=== PATIENT | female | born 1975 | race Hispanic/Latino ===

== ENCOUNTER 2019-03-08 21:41 | Inpatient (IN) | payer SELFPAY ==
[~2019-03-08] VITALS: Ht 162.6 cm; Wt 108.4 kg
--- OUTSIDE RECORDS SUMMARY | 2019-03-08 21:44 | XMS REPORT ---
Author [facility] Address Unknown Phone Unavailable Care Team Providers Care Placer Miner Name Role Phone UNKNOWN, REFFERING PP Unavailable SARAHI, SHARON Unavailable Unavailable Payers Payer Name Policy Type Policy Number Effective Date Expiration Date Problems This patient has no known problems. Allergies, Adverse Reactions, Alerts Allergy Name Allergy Type Status Severity Reaction(s) Onset Date Inactive Date Treating Clinician Comments No Known Allergies DA Active U 2015-07-09 00:00:00 Medications This patient has no known medications. Results Test Description Test Time Test Comments Text Results Atomic Results Result Comments COMPREHENSIVE METABOLIC PANEL 2018-11-15 18:50:00 SODIUM (test code=NA) 136 mmol/L 135-148 POTASSIUM (test code=K) 4.1 mmol/L 3.5-5.1 CHLORIDE (test code=CL) 100 mmol/L 101-109 CARBON DIOXIDE (test code=CO2) 27.8 mmol/L 21-32 ANION GAP (test code=GAP) 12 mmol/L 10-20 GLUCOSE (test code=GLU) 333 mg/dL 74-106 BLOOD UREA NITROGEN (test code=BUN) 18 mg/dL 3-21 CREATININE (test code=CREAT) 1.14 mg/dL 0.55-1.3 BUN/CREATININE RATIO (test code=BUN/CREA) 15.8 10-20 TOTAL PROTEIN (test code=PROT) 7.4 g/dL 6.5-8.4 ALBUMIN (test code=ALB) 3.1 g/dL 3.4-4.8 GLOBULIN (test code=GLOB) 4.3 G/DL 1-10 ALBUMIN/GLOBULIN RATIO (test code=A/G) 0.7 RATIO 0.75-1.50 CALCIUM (test code=CA) 8.5 mg/dL 8.4-10.2 BILIRUBIN TOTAL (test code=BILT) 0.20 mg/dL 0.0-1.0 SGOT/AST (test code=AST) 32 U/L 6-32 SGPT/ALT (test code=ALT) 62 U/L 12-78 Note: Change in REFERENCE RANGE due to new reagent method. ALKALINE PHOSPHATASE TOTAL (test code=ALKP) 164 U/L 38-126 URINALYSIS [id number] 18:36:00* Test Item Value Reference Range Comments UA COLOR (test code=COLU) YELLOW YELLOW UA APPEARANCE (test code=APPU) CLEAR CLEAR UA GLUCOSE DIPSTICK (test code=DGLUU) 1000(3+) mg/dL NEGATIVE UA BILIRUBIN DIPSTICK (test code=BILU) 1 mg/dL (1+) mg/dL NEGATIVE UA KETONE DIPSTICK (test code=KETU) 5 (Trace) mg/dL NEGATIVE UA SPECIFIC GRAVITY (test code=SGU) 1.020 1.001-1.035 UA BLOOD DIPSTICK (test code=SILVANA) 50 (2+) Wilfrid/uL NEGATIVE UA PH DIPSTICK (test code=CHAZ) 5.0 5.0-8.0 UA PROTEIN DIPSTICK (test code=PROU) 100 (2+) mg/dL Neg-15 UA UROBILINIOGEN DIPSTICK (test code=URO) 4 mg/dL (2+) mg/dL 0.0-0.2 UA NITRITE DIPSTICK (test code=SHARYN) NEGATIVE NEGATIVE UA LEUKOCYTE ESTERASE DIPSTICK (test code=LEUU) NEGATIVE uL NEGATIVE UA WBC (test code=WBCU) NONE SEEN per HPF 0-5 IN SOME URINARY TRACT INFECTIONS THERE MAY NOT BE ENOUGHWBCs IN THE URINE TO TRIGGER AN AUTOMATIC (REFLEX) URINECULTURE. A SEPERATE ORDER FOR URINE CULTURE IS RECOMMENDEDIF THERE IS STRONG SUPPORT FOR A URINARY TRACT INFECTIONCLINICALLY. UA RBC (test code=RBCU) 0-3 per HPF 0-5 UA EPITHELIAL CELLS (test code=EPIU) Rare (0-1/hpf) per HPF Few UA BACTERIA (test code=BACU) FEW per HPF NONE Urine Source? Clean CatchURINALYSIS [id number] 18:28:00* Test Item Value Reference Range Comments UA COLOR (test code=COLU) YELLOW YELLOW UA APPEARANCE (test code=APPU) CLEAR CLEAR UA GLUCOSE DIPSTICK (test code=DGLUU) 1000(3+) mg/dL NEGATIVE UA BILIRUBIN DIPSTICK (test code=BILU) 1 mg/dL (1+) mg/dL NEGATIVE UA KETONE DIPSTICK (test code=KETU) 5 (Trace) mg/dL NEGATIVE UA SPECIFIC GRAVITY (test code=SGU) 1.020 1.001-1.035 UA BLOOD DIPSTICK (test code=SILVANA) 50 (2+) Wilfrid/uL NEGATIVE UA PH DIPSTICK (test code=CHAZ) 5.0 5.0-8.0 UA PROTEIN DIPSTICK (test code=PROU) 100 (2+) mg/dL Neg-15 UA UROBILINIOGEN DIPSTICK (test code=URO) 4 mg/dL (2+) mg/dL 0.0-0.2 UA NITRITE DIPSTICK (test code=SHARYN) NEGATIVE NEGATIVE UA LEUKOCYTE ESTERASE DIPSTICK (test code=LEUU) NEGATIVE uL NEGATIVE UA WBC (test code=WBCU) per HPF 0-5 Urine Source? Clean CatchCBC W/AUTO [id number] 18:27:00* Test Item Value Reference Range Comments WHITE BLOOD CELL (test code=WBC) 8.5 K/mm3 4.5-12.5 RED BLOOD CELL (test code=RBC) 5.61 mill/mm3 3.7-5.2 HEMOGLOBIN (test code=HGB) 16.3 gram/dL 11.5-15.5 HEMATOCRIT (test code=HCT) 48.6 % 36.0-46.0 MEAN CELL VOLUME (test code=MCV) 86.6 fL 80-98 MEAN CELL HGB (test code=MCH) 29.1 picogram 27.0-33.0 MEAN CELL HGB CONCETRATION (test code=MCHC) 33.5 gram/dL 33.0-36.0 RED CELL DISTRIBUTION WIDTH (test code=RDW) 14.0 % 11.6-16.2 RED CELL DISTRIBUTION WIDTH SD (test code=RDW-SD) 44.0 fL 39.1-52.0 PLATELET COUNT (test code=PLT) 177 K/mm3 150-450 MEAN PLATELET VOLUME (test code=MPV) 12.6 fL 6.7-11.0 NEUTROPHIL % (test code=NT%) 67.6 % 39.0-69.0 LYMPHOCYTE % (test code=LY%) 22.7 % 25.0-55.0 MONOCYTE % (test code=MO%) 6.5 % 0.0-10.0 EOSINOPHIL % (test code=EO%) 2.8 % 0.0-5.0 BASOPHIL % (test code=BA%) 0.4 % 0.0-1.0 NEUTROPHIL # (test code=NT#) 5.76 K/mm3 1.8-7.7 LYMPHOCYTE # (test code=LY#) 1.93 K/mm3 1.0-5.0 MONOCYTE # (test code=MO#) 0.55 K/mm3 0-0.8 EOSINOPHIL # (test code=EO#) 0.24 K/mm3 0.0-0.5 BASOPHIL # (test code=BA#) 0.03 K/mm3 0.0-0.2 MANUAL DIFF REQUIRED (test code=MDIFF) NO Comprehensive Metabolic [id number] 18:44:00* Test Item Value Reference Range Comments Sodium (test code=NA) 136 mmol/L 135-145 Potassium (test code=K) 4.1 mmol/L 3.5-5.1 Chloride (test code=CL) 101 mmol/L 98-105 Carbon Dioxide (test code=CO2) 23 mmol/L 22-29 Glucose (test code=GLU) 155 mg/dL 70-115 Blood Urea Nitrogen (test code=BUN) 12 mg/dL 6-20 Creatinine (test code=CREAT) 0.8 mg/dL 0.5-0.9 Calcium (test code=CA) 9.5 mg/dL 8.3-10.5 Prot Total (test code=TP) 6.7 g/dL 6.4-8.3 Albumin (test code=ALB) 4.0 g/dL 3.5-5.2 A/G Ratio (test code=AGRATIO) 1.5 Ratio Globulin (test code=GLOB) 2.7 2.9-3.1 Bili Total (test code=TBIL) 0.2 mg/dL 0.1-0.9 Alk Phos (test code=APHOS) 134 U/L 35-104 AST (test code=AST) 14 U/L 1-32 ALT (test code=ALT) 26 U/L 1-33 BUN/Creatinine Ratio (test code=BCRATIO) 15.0 Anion Gap (test code=AGAP) 12 mmol/L 7-16 Estimated GFR (test code=GFR) >60 mL/min/1.73m2 eGFR (estimated Glomerular Filtration Rate) is an estimated value,calculated from the patient's serum creatinine using the MDRD equation.It is NOT the patient's actual GFR. The eGFR provides a more clinicallyuseful measure of kidney disease than serum creatinine alone.This calculation takes sex and race into account, if the informationis provided. If the race is not provided, and the patient isAfrican-Niuean, multiply by 1.212. If sex is not provided, and thepatient is female, multiply by 0.742. Results for patients <18 years ofage have not been validated by the MDRD study and should be interpretedwith caution.eGFR Result Interpretation:eGFR > or=60 is in the Normal RangeeGFR < 60 may mean kidney diseaseeGFR < 15 may mean kidney failureRanges recommended by the National Kidney Foundat ion,http://nkdep.nih.gov Troponin [id number] 18:44:00* Test Item Value Reference Range Comments Troponin T (test code=VALENTIN) 0.019 ng/mL 0.000-0.090 CBC with [id number] 18:24:00* Test Item Value Reference Range Comments WBC (test code=WBC) 12.2 K/cumm 4.4-10.5 RBC (test code=RBC) 4.92 M/cumm 3.75-5.20 Hemoglobin (test code=HGB) 14.5 gm/dL 12.2-14.8 Hematocrit (test code=HCT) 43.0 % 36.5-44.4 MCV (test code=MCV) 87.4 fL 80-100 MCH (test code=MCH) 29.4 pg 27.0-32.5 MCHC (test code=MCHC) 33.6 g/dL 32.0-37.5 RDW (test code=RDW) 16.0 % 11.5-14.5 Platelet Count (test code=PLTCT) 241 K/cumm 140-440 MPV (test code=MPV) 10.3 fL Diff Method (test code=DIFFM) Auto Neutrophil (test code=NEUT) 62.8 % 36-70 Lymphocyte (test code=LYMPH) 26.9 % 12-44 Monocyte (test code=MONO) 5.4 % 0-11 Eosinophil (test code=EOS) 4.3 % 0-7 Basophil (test code=BASO) 0.6 % 0-2 Neutro Abs (test code=ANEUT) 7.7 K/cumm 1.6-7.4 Lymph Abs (test code=ALYMPH) 3.3 K/cumm 0.5-4.6 [place] Abs (test code=AMONO) 0.7 K/cumm 0.0-1.2 Eos Abs (test code=AEOS) 0.52 K/cumm 0.00-0.74 Baso Abs (test code=ABASO) 0.1 K/cumm 0.00-0.21 BHCG, Urine, [id number] 18:22:00* Test Item Value Reference Range Comments Preg Qual [Ur] (test code=HUHCG) Negative Negative US 2D-ECHOCARDIOGRAPHY WITH DOPPLERCLINICAL INDICATION: R60.9 Edema, unspecifiedMODALITY: [employer] ProTECHNIQUE: Transthoracic echocardiogram with 2D, continuous Doppler and color Doppler techniques. Sampling of mitral, tricuspid, aortic and pulmonary valves. Pressures, velocities and other measurements were obtained.CONCLUSIONS:1. Left ventricular EF is 65 - 70%. LV size and systolic function are normal. There is mild LVH.2. The diastolic filling pattern is indicative of impaired LV relaxation.3. There are no significant valvular abnormalities.4. There is an insufficient tricuspid regurgitant jet to allow for the assessment of PASP.COMPARISON: noneTechn ologist: FINDINGS:Left ventricle: Left ventricular size and systolic function ar e normal. There is mild LVH. The left ventricular EF is 65 - 70%. The diastolic filling pattern is indicative of impaired LV relaxation.Left atrium: Left atriu m is normal in size and function.Right ventricle: The right ventricle is normal in size and function.Right atrium: The right atrium is normal in size and func tion.Aortic valve: The aortic valve is trileaflet and appears structurally norm al. No aortic stenosis or regurgitation.Mitral valve: Normal appearing mitral valve. Trace/mild (physiologic) regurgitation.Tricuspid valve: Tricuspid valve appears normal. There is an insufficient tricuspid regurgitant jet to allow fo r the assessment of pulmonary artery systolic pressure.Pulmonic valve: Pulmonic valve appear structurally normal, physiologic degree of pulmonic regurgitation. Pericardium: There is no pericardial effusion.Aorta: The aortic root is normal in caliber.VSD/ASD:
[2019-03-08] MEDS ORDERED: LABETALOL HCL 5 MG/ML 20ML VIAL IV STA (22:29)
[2019-03-08 22:46] LABS: BASOPHILS # (AUTO) 0.1 (0.0-0.1); BASOPHILS % 0.6 % (0.0-1.0); EOSINOPHILS # (AUTO) 0.4 (0.0-0.4); EOSINOPHILS % 3.1 % (0.0-6.0); HEMATOCRIT 45.9 % (34.2-44.1); HEMOGLOBIN 15.9 g/dL (12.0-16.0); LYMPHOCYTES # (AUTO) 3.7 (1.0-3.2); LYMPHOCYTES % 28.6 % (18.0-39.1); MEAN CORPUSCULAR HEMOGLOBIN 29.1 pg (28-32); MEAN CORPUSCULAR HGB CONC 34.6 g/dL (31-35); MEAN CORPUSCULAR VOLUME 83.9 fL (81-99); MONOCYTES # (AUTO) 0.6 (0.2-0.8); MONOCYTES % 4.4 % (4.4-11.3); NEUTROPHILS # (AUTO) 8.2 (2.1-6.9); NEUTROPHILS % 62.8 % (38.7-80.0); PLATELET COUNT 227 x10e3/uL (140-360); RED BLOOD COUNT 5.47 x10e6/uL (3.6-5.1); RED CELL DISTRIBUTION WIDTH 13.4 % (11.7-14.4)
[2019-03-08 22:52] LABS: INR 0.94; PARTIAL THROMBOPLASTIN TIME 26.9 seconds (23.8-35.5); PROTHROMBIN TIME 13.1 seconds (11.9-14.5)
--- NOTE | 2019-03-08 22:55 | Diagnostic Imaging Report ---
Examination: Single AP view of the chest. COMPARISON: None. INDICATION: Left-sided weakness DISCUSSION: Lines/tubes: None. Lungs: The lungs are well inflated and clear. No pneumonia or pulmonary edema. Pleura: No pleural effusion or pneumothorax. Heart and mediastinum: The heart and the mediastinum are unremarkable. Bones and soft tissues: No acute bony abnormalities. IMPRESSION: 1. No acute cardiopulmonary abnormalities. Signed by: Dr. Antony Hall M.D. on 03/08/2019 10:51 PM
--- NOTE | 2019-03-08 22:57 | Diagnostic Imaging Report ---
EXAMINATION: Head CT without contrast. HISTORY:Left facial droop and weakness. COMPARISON:None. TECHNIQUE: Multidetector axial images were obtained from the foramen magnum to the vertex without contrast. The images were reconstructed using brain and bone algorithms. Thin section brain images were reformatted into coronal and sagittal planes. Dose modulation, iterative reconstruction, and/or weight based adjustment of the mA/kV was utilized to reduce the radiation dose to as low as reasonably achievable. Intravenous contrast: None IMAGE QUALITY: Suboptimal evaluation particularly of skull base and posterior fossa structures due to streak artifacts. FINDINGS: Skull/scalp: No lytic or blastic. lesions. No surgical changes. Parenchyma: No abnormal density. No acute hemorrhage, mass or acute major vascular territorial infarct. Arteries: No density suggestive of thrombosis. Dural sinuses: No abnormal density suggestive of thrombosis. Ventricles: No hydrocephalus or displacement. Extra-axial spaces: No abnormal density. Brain volume: Normal for age. Craniocervical junction: No mass, Chiari malformation, or basilar invagination. Sella: No mass. Paranasal/mastoid sinuses: Partial opacification of right mastoid air cells. IMPRESSION: Suboptimal evaluation of skull base and posterior fossa structures due to streak artifacts. Despite the limitation, no gross acute intracranial abnormality. Signed by: Dr. Marley Sung M.D. on 03/08/2019 10:54 PM
[2019-03-08 22:59] LABS: ALBUMIN 3.8 g/dL (3.5-5.0); ANION GAP 20.7 mmol/L (8-16); CALCIUM 10.6 mg/dL (8.4-10.2); CREATININE, SERUM 1.14 mg/dL (0.57-1.11); POTASSIUM 3.7 mmol/L (3.5-5.1)
[2019-03-08 23:08] LABS: CREATINE KINASE MB 1.6 ng/mL (0-5.0)
[2019-03-08 23:54] LABS: AMPHETAMINES SCREEN,URINE NEGATIVE (NEGATIVE); BENZODIAZEPINES SCREEN,URINE NEGATIVE (NEGATIVE); PHENCYCLIDINE SCREEN,URINE NEGATIVE (NEGATIVE)
[2019-03-09] VITALS (24 sets, daily range): BP systolic 144–207; BP diastolic 62–143
[2019-03-09] MEDS ORDERED: HYDRALAZINE HCL 20 MG/ML VIAL IV STA (00:03)
[2019-03-09 00:05] LABS: CLARITY,URINE CLOUDY (CLEAR); COLOR,URINE YELLOW (YELLOW); LEUKOCYTE ESTERASE ,URINE NEGATIVE (NEGATIVE)
[2019-03-09 00:06] LABS: BILIRUBIN,URINE NEGATIVE (NEGATIVE); KETONES,URINE NEGATIVE (NEGATIVE); NITRITE,URINE NEGATIVE (NEGATIVE); PROTEIN,URINE DIPSTICK 2+ (NEGATIVE); URINE UROBILINOGEN 0.2 mg/dL (0.2 - 1)
[2019-03-09] MEDS ORDERED: ASPIRIN 325 MG TAB ONE (00:13)
[2019-03-09] MEDS ORDERED: HYDRALAZINE HCL 20 MG/ML VIAL ONE (00:14)
[2019-03-09] MEDS ORDERED: ASPIRIN 81 MG CHEW TAB PO ONE (00:15)
[2019-03-09 00:22] LABS: BACTERIA,URINE FEW /HPF; EPITHELIAL CELLS,URINE FEW /LPF
[2019-03-09] MEDS ORDERED: DEXTROSE 50% SYRINGE 50 ML IV PRN (01:15)
[2019-03-09] MEDS ORDERED: ONDANSETRON HCL INJ 2MG/ML 2ML 2 MG/ML VIAL IV PRN (01:15)
[2019-03-09] MEDS ORDERED: ENALAPRILAT IV INJ 1.25 MG/ML VIAL IV STA (02:20)
[2019-03-09] MEDS: LABETALOL HCL 5 MG/ML 20ML VIAL IV PRN ×2 (05:40→18:54)
[2019-03-09 07:49] LABS: CREATINE KINASE MB 1.4 ng/mL (0-5.0)
[2019-03-09] MEDS: INSULIN LISPRO 100 UNIT/1 ML 3ML VIAL SQ SCH ×4 (08:20→21:22)
[2019-03-09] MEDS: LISINOPRIL 10 MG TAB PO SCH ×2 (08:40→08:49)
--- NOTE | 2019-03-09 09:21 | NUR ---
GAVE PACKET OF INFORMATION WITH COMMUNITY RESOURCES FOR ASSISTANCE WITH LOW TO NO INCOME TO PATIENT. RESOURCES THAT PATIENT MAY BE ABLE TO FOLLOW UP UPON DISCHARGE. PT EDUCATED ON EACH RESOURCE AND UNDERSTANDING HOW TO FOLLOW UP TO SEE IF QUALIFIED FOR EACH RESOURCE.
[2019-03-09] MEDS ORDERED: LORAZEPAM INJ 2 MG/ML VIAL ONE (11:54)
[2019-03-09] MEDS ORDERED: LORAZEPAM INJ 2 MG/ML VIAL IV ONE (12:00)
--- NOTE | 2019-03-09 13:29 | NUR ---
WOUND CARE PUP SCREEN Romulo Score: 23 PUP: Conservative LOS: 1 day Age: 43 [place] HOB < 30 Degrees Patient Position: Left PATIENT VISIT / SKIN CHECK: No Pressure Ulcers Identified, Able to turn self. RECOMMENDATION:Continue Conservative PUP Addendum: 03/09/19 at 1330 by Ean Rios RN Amended: Links added.
[2019-03-09 15:07] LABS: CREATINE KINASE 111 IU/L (29-168)
--- NOTE | 2019-03-09 15:10 | Diagnostic Imaging Report ---
Brain MRI without IV contrast: History: Left facial droop. Comparison studies: Head CT 03/08/2019. Technique: Sagittal and axial T2 FS, axial DWI, axial T2*GRE, axial T1 FLAIR and axial coronal T2 FLAIR. Intravenous contrast: None Findings: Several pulse sequences are somewhat limited by artifacts related to patient motion. In spite of this limitation: Scalp: Normal in signal. No masses. Bone marrow: Normal in signal intensity. Brain sulci: Appropriate for age. Ventricles: Normal in size. No hydrocephalus. Extra axial spaces: No mass, no fluid collection. Parenchyma: A few scattered T2 FLAIR hyperintense foci in the supratentorial white matter are nonspecific most compatible with chronic microvascular ischemic changes. No mass, hemorrhage or acute ischemia. Suprasellar region: No abnormalities. Craniocervical junction: Patent foramen magnum. No Chiari malformation. Vessels: Normal flow-voids in the arteries and sinuses. Incidental findings: Mild reactive T2 hyperintense inflammatory changes in the right mastoids. IMPRESSION: 1. No acute ischemia or other acute intracranial abnormalities. 2. Mild chronic microvascular ischemic changes. Signed by: Dr. Slava Lopez M.D. on 03/09/2019 3:07 PM
[2019-03-09] MEDS: METOPROLOL TARTRATE 25 MG TAB PO SCH (16:16)
[2019-03-09] MEDS: AMLODIPINE BESYLATE 5 MG TAB PO SCH (16:17)
--- NOTE | 2019-03-09 16:44 | NUR ---
Dr.. Rivera updated this morning upon rounding. new orders received. MRI brain completed. tolerated MRI with ativan iv well. patient ambulating to bathroom. gait stable. only facial droop noted and updated to MD. hendrix. nbp elevated throughout day. pt asymptomatic (except facial droop). new medication orders received.
--- NOTE | 2019-03-09 19:34 | NUR ---
call placed to dr. howard regarding bp elevation. pt asymptomatic. administered prn bp medication with little effect. [id number] nursing report given to machinist 2nd shift RN.
[2019-03-10] VITALS (22 sets, daily range): BP systolic 147–205; BP diastolic 75–110
[2019-03-10] MEDS: INSULIN LISPRO 100 UNIT/1 ML 3ML VIAL SQ SCH ×4 (07:55→20:30)
[2019-03-10] MEDS: AMLODIPINE BESYLATE 5 MG TAB PO SCH ×2 (07:59→16:42)
[2019-03-10] MEDS: METOPROLOL TARTRATE 25 MG TAB PO SCH ×2 (08:00→16:42)
[2019-03-10] MEDS: LABETALOL HCL 5 MG/ML 20ML VIAL IV PRN ×2 (15:17→21:12)
[2019-03-10] MEDS ORDERED: HYDRALAZINE HCL 25 MG TAB PO SCH (17:30)
[2019-03-10] MEDS: METFORMIN HCL 500 MG TAB PO SCH (18:23)
[2019-03-10] MEDS: BENZONATATE 100 MG CAP PO SCH (20:30)
[2019-03-10] MEDS ORDERED: INSULIN GLARGINE 100 UNITS/ML VIAL SQ SCH (21:00)
[2019-03-10] MEDS: HYDRALAZINE HCL 25 MG TAB PO SCH (22:44)
[2019-03-10] MEDS: ACETAMINOPHEN 325 MG TAB PO PRN (22:44)
[2019-03-11] VITALS (16 sets, daily range): BP systolic 138–203; BP diastolic 69–139
[2019-03-11 04:48] LABS: BASOPHILS # (AUTO) 0.1 (0.0-0.1); BASOPHILS % 0.7 % (0.0-1.0); EOSINOPHILS # (AUTO) 0.6 (0.0-0.4); EOSINOPHILS % 4.4 % (0.0-6.0); HEMATOCRIT 44.4 % (34.2-44.1); HEMOGLOBIN 15.2 g/dL (12.0-16.0); LYMPHOCYTES # (AUTO) 3.9 (1.0-3.2); LYMPHOCYTES % 27.6 % (18.0-39.1); MEAN CORPUSCULAR HGB CONC 34.2 g/dL (31-35); MEAN CORPUSCULAR VOLUME 84.6 fL (81-99); MONOCYTES # (AUTO) 0.7 (0.2-0.8); MONOCYTES % 4.8 % (4.4-11.3); NEUTROPHILS # (AUTO) 8.6 (2.1-6.9); NEUTROPHILS % 61.8 % (38.7-80.0); PLATELET COUNT 215 x10e3/uL (140-360); RED BLOOD COUNT 5.25 x10e6/uL (3.6-5.1); RED CELL DISTRIBUTION WIDTH 13.4 % (11.7-14.4)
[2019-03-11 05:09] LABS: ANION GAP 13.2 mmol/L (8-16); BLOOD UREA NITROGEN 15 mg/dL (7-26); BUN/CREATININE RATIO 16 (6-25); CALCIUM 9.4 mg/dL (8.4-10.2); CARBON DIOXIDE 23 mmol/L (22-29); CHLORIDE 102 mmol/L (98-107); CREATININE, SERUM 0.93 mg/dL (0.57-1.11); EST GLOMERULAR FILTRATION RATE > 60 ML/MIN (60-); GLUCOSE 318 mg/dL (74-118); POTASSIUM 4.2 mmol/L (3.5-5.1); SODIUM 134 mmol/L (136-145)
[2019-03-11] MEDS: LABETALOL HCL 5 MG/ML 20ML VIAL IV PRN ×2 (05:12→16:21)
[2019-03-11] MEDS: INSULIN LISPRO 100 UNIT/1 ML 3ML VIAL SQ SCH ×4 (07:56→21:32)
[2019-03-11] MEDS: INSULIN GLARGINE 100 UNITS/ML VIAL SQ SCH (07:57)
[2019-03-11] MEDS: BENZONATATE 100 MG CAP PO SCH ×3 (08:49→21:30)
[2019-03-11] MEDS: HYDRALAZINE HCL 25 MG TAB PO SCH ×3 (08:49→21:30)
[2019-03-11] MEDS: METFORMIN HCL 500 MG TAB PO SCH ×2 (08:49→17:00)
[2019-03-11] MEDS: METOPROLOL TARTRATE 50 MG TAB PO SCH ×2 (08:49→17:00)
[2019-03-11] MEDS: AMLODIPINE BESYLATE 5 MG TAB PO SCH ×2 (08:49→17:00)
[2019-03-11] MEDS ORDERED: METOPROLOL TARTRATE 25 MG TAB PO SCH (09:00)
--- NOTE | 2019-03-11 13:45 | NUR ---
REC'D PT FROM ICU 194. TELE IN PLACE. PT WANTING TO GO OUTSIDE BUT SHE ON BEDREST.
--- NOTE | 2019-03-11 15:46 | NUR ---
Nutrition Education Note RD Recommendation for Physician: -Continue ADA 1800 diet as ordered -RD provided diabetic diet education on 03/11. Rec pt to f/u with her outpatient RD when d/c. -floor service worker spring to provide resources on low cost insulin options. (no insurance) Plan of Care: RD following, monitoring for tolerance and adequacy, diet education Nutrition reason for involvement: RN Consult diabetic teaching Primary Diagnose(s): facial droop, uncontrolled DM, hypertensive urgency, renal insufficiency PMH: DM, HTN Ht: 64in Wt: 239lb BMI: 41kg/m2 IBW: 120lb RD Assessment: (03/11) Chart reviewed. Labs and meds reviewed. 43yo F, who was admitted for uncontrolled DM and facial droop. BG [address] was consulted for diet education. Visited pt in the room. Pt has stopped taking her diabetic medications for a while. Pt stated I have switched doctors so I didnt get medications. Pt also reported going to diabetes classes with her mother. Reinforced the importance of diabetic diet and physical activity to keep her blood sugar under control. Pt will need 1-on-1 education and monitoring with an outpatient CDE for better management of her blood sugar. Current Diet: ADA 1800 Malnutrition Evaluation (03/11) The patient does not meet criteria for a specified degree of malnutrition at this time. Will re-evaluate at follow-up as appropriate. Diet Education Needs Assessment: Diet education indicated, pt was agreeable with plan. Learner(s): pt Time spent: 20 minutes Barriers: No insurance, cannot afford insulin, not compliant with meds, not interested in lifestyle changes Cultural/Language Modifications: No cultural/language modifications noted. Pt and mom speak [place]ar[place]uan. Readiness: Acceptance Method: Handouts, explanation Topics: Portion control, weight management, medications, BG checks, physical activity Understanding/Compliance: Expect fair understanding/compliance from pt. Will benefit from reinforcement. All questions have been answered. Nutrition Care Level: low Signed: Jaclyn Kidd, MS, RD, LD
--- NOTE | 2019-03-11 16:28 | NUR ---
PT TRANSFERED FROM ICU TO MED SURG BED ENCOURAGED PT TO GET ON INTERNET NOW AND START APPLYING FOR [facility] BENEFITS VALUE PRICED MED LIST [facility] ON CHART FOR PHYSICIAN TO CHOOSE FROM
[2019-03-11] MEDS: ACETAMINOPHEN 325 MG TAB PO PRN (17:20)
--- NOTE | 2019-03-11 18:30 | NUR ---
BP IS LOWER AT THIS TIME 162/77 ON LT ARM. HEADACHE IS BETTER AT THIS TIME
[2019-03-11] MEDS ORDERED: INSULIN GLARGINE 100 UNITS/ML VIAL SQ SCH (21:00)
[2019-03-12] VITALS (8 sets, daily range): BP systolic 130–190; BP diastolic 70–97
--- NOTE | 2019-03-12 03:51 | NUR ---
received call from medical examiners office. Spoke to Lesley Will. Information given patients address, next of kin name and address. patient medical history, procedure and reason for admission to the hospital. Time of , MD who pronounced, MD who will sign certificate name and phone number. Lesley Nicolette stated it was natural , case given over to attending MD, Release # [id number]. Addendum: 03/12/19 at 0423 by Mildred Smith RN please disregard note enter in error
[2019-03-12] MEDS: INSULIN LISPRO 100 UNIT/1 ML 3ML VIAL SQ SCH ×3 (08:17→16:33)
[2019-03-12] MEDS: METOPROLOL TARTRATE 50 MG TAB PO SCH ×2 (08:17→16:00)
[2019-03-12] MEDS: METFORMIN HCL 500 MG TAB PO SCH ×2 (08:17→15:59)
[2019-03-12] MEDS: HYDRALAZINE HCL 25 MG TAB PO SCH ×2 (08:17→15:59)
[2019-03-12] MEDS: AMLODIPINE BESYLATE 5 MG TAB PO SCH ×2 (08:18→16:00)
[2019-03-12] MEDS: BENZONATATE 100 MG CAP PO SCH ×2 (08:18→15:59)
[2019-03-12] MEDS: INSULIN GLARGINE 100 UNITS/ML VIAL SQ SCH (08:18)
[2019-03-12 13:24] LABS: BASOPHILS # (AUTO) 0.1 (0.0-0.1); BASOPHILS % 0.7 % (0.0-1.0); EOSINOPHILS # (AUTO) 0.6 (0.0-0.4); EOSINOPHILS % 4.8 % (0.0-6.0); HEMATOCRIT 46.7 % (34.2-44.1); HEMOGLOBIN 16.1 g/dL (12.0-16.0); LYMPHOCYTES # (AUTO) 3.4 (1.0-3.2); LYMPHOCYTES % 25.3 % (18.0-39.1); MEAN CORPUSCULAR HEMOGLOBIN 29.1 pg (28-32); MEAN CORPUSCULAR HGB CONC 34.5 g/dL (31-35); MEAN CORPUSCULAR VOLUME 84.4 fL (81-99); MONOCYTES # (AUTO) 0.5 (0.2-0.8); MONOCYTES % 3.6 % (4.4-11.3); NEUTROPHILS # (AUTO) 8.6 (2.1-6.9); NEUTROPHILS % 65.1 % (38.7-80.0); PLATELET COUNT 244 x10e3/uL (140-360); RED BLOOD COUNT 5.53 x10e6/uL (3.6-5.1); RED CELL DISTRIBUTION WIDTH 13.6 % (11.7-14.4)
--- NOTE | 2019-03-12 13:27 | NUR ---
NOTIFIED DR. VELASCO REGARDING NEW CONSULT. DR. VELASCO SPOKE WITH DR. ARRIETA AND NOTIFIED THERE IS NOTHING SHE CAN DO AT THIS POINT FOR BELLS PALSY, IT WILL HAVE TO RESOLVE ON ITS OWN. PT CAN F/U OUTPATIENT. PER DR. ARRIETA OK TO D/C HOME TODAY AFTER INSULIN ADMINISTRATION INSTRUCTION.
--- NOTE | 2019-03-12 13:45 | Progress Note ---
DATE: SUBJECTIVE: The patient is doing well except for complaining of dry eyes. OBJECTIVE: HEART: Regular rhythm. Normal S1, S2 sounds. LUNGS: Clear bilaterally. ABDOMEN: Soft. VITAL SIGNS: Blood pressure 141/94, temperature 36.9, heart rate 71 per minute, respiratory rate 20 per minute, oxygen saturation 98%. LABORATORY DATA: On the BMP; sodium 134, potassium 4.2, chloride of 102, CO2 of 23, BUN 15, creatinine 0.83, glucose 318. CBC showed white count 13,900, hemoglobin 15.2, hematocrit 44.2, platelet count of 215,000. PT 13.1, INR 0.94, PTT 26.9. AST 26, ALT 56, total bilirubin 0.3, alkaline phosphatase 157. FINAL IMPRESSION: 1. Canchola's palsy. 2. Uncontrolled diabetes mellitus type 2. 3. Hypertension. 4. Diabetes mellitus. 5. Obesity. PLAN OF TREATMENT: We are going to start the patient on prednisone 60 mg daily because of Canchola's palsy. We are going to consult Dr. French also for further evaluation. MRI of the head showed no evidence of any CVA. Continue metoprolol 50 mg twice a day. Continue Humalog 40 units at bedtime and 10 units in the morning. We are going to start Humalog 5 units before each meal, amlodipine 5 mg twice a day, Tessalon 100 mg three times a day, metformin 500 mg twice a day, hydralazine 50 mg three times a day. Tentative discharge for tomorrow pending evaluation by Dr. French. The patient is told to follow up with her primary care physician in a week. Also today diabetes teaching is going to be given to the patient since this is the first time she is taking insulin. Parish Olivo MD LAS/MODL /[id number]
[2019-03-12] MEDS ORDERED: METOPROLOL TART50 MG PO (14:06)
[2019-03-12] MEDS ORDERED: METFORMIN HCL500 MG PO (14:06)
[2019-03-12] MEDS ORDERED: LANTUS 3ML100 UNITS/ SC ×2 (14:07→14:08)
[2019-03-12] MEDS ORDERED: HYDRALAZINE HCL25 MG PO (14:08)
[2019-03-12] MEDS ORDERED: NORVASC5 MG PO (14:08)
[2019-03-12] MEDS ORDERED: HUMALOG100 UNIT/1 SC (14:09)
[2019-03-12] MEDS ORDERED: ARTIFICIAL TEAR15 ML OP (14:09)
--- NOTE | 2019-03-12 15:45 | NUR ---
D/C INSTRUCTIONS AND PRESCRIPTIONS GIVEN. PT VERBALIZED UNDERSTANDING. IV D/C AND PRESSURE DRESSING APPLIED. TELEMETRY BOX REMOVED AND RETURNED TO WASH RACK OPERATOR. Addendum: 03/12/19 at 1756 by Maribell Mejia RN CORRECT TIME [id number]
[2019-03-12] MEDS ORDERED: INSULIN LISPRO 100 UNIT/1 ML 3ML VIAL SQ SCH (16:30)
--- NOTE | 2019-03-12 16:33 | NUR ---
INSTRUCTIONS GIVEN ON USING GLUCOMETER FOR GLUCOSE MONITORING AND ADMINISTERING OWN INSULIN. PT CHECKED OWN BLOOD SUGAR AND ADMINISTERED OWN INSULIN ORDERED. PT VERBALIZED UNDERSTANDING AND GOOD RETURN DEMONSTRATION NOTED. ALL QUESTIONS ANSWERED.
== END 2019-03-12 17:45 | disposition home or self-care (01) | DRG 74 ==
LOC: ER 21:41 → ERHOLD 03-09 01:27 → OBSVTOIN 03-09 02:36 → ICU 03-09 03:16 → MED/SURG 03-11 13:52
DX: G51.0 Bell's palsy (principal); Z68.41 Body mass index [BMI] 40.0-44.9, adult; I16.0 Hypertensive urgency; N28.9 Disorder of kidney and ureter, unspecified; E11.65 Type 2 diabetes mellitus with hyperglycemia; I10 Essential (primary) hypertension; E66.9 Obesity, unspecified; Z79.4 Long term (current) use of insulin
CPT/HCPCS: 36415; 70450; 70551; 71045; 80048; 80053; 80307; 81001; 82550; 82553; 82948; 83880; 84484; 85025; 85610; 85730; 93005; 93306; 93880; 96372; 96374; 99284; J0360; J1815; J2060

== ENCOUNTER 2019-06-03 06:06 | Emergency (ER) | payer SELFPAY ==
[~2019-06-03] VITALS: Ht 162.6 cm; Wt 108.9 kg
[~2019-06-03 06:06] MED LIST: ARTIFICIAL TEAR15 ML OP; HUMALOG100 UNIT/1 SC; HYDRALAZINE HCL25 MG PO; LANTUS 3ML100 UNITS/ SC; METFORMIN HCL500 MG PO; METOPROLOL TART50 MG PO; NORVASC5 MG PO
[2019-06-03] MEDS ORDERED: ONDANSETRON HCL INJ 2MG/ML 2ML 2 MG/ML VIAL IV STA (06:16)
[2019-06-03] MEDS ORDERED: HYDRALAZINE HCL 20 MG/ML VIAL IV ONE (06:30)
[2019-06-03 06:42] LABS: BASOPHILS # (AUTO) 0.1 (0.0-0.1); BASOPHILS % 0.9 % (0.0-1.0); EOSINOPHILS # (AUTO) 0.5 (0.0-0.4); EOSINOPHILS % 3.9 % (0.0-6.0); HEMATOCRIT 46.2 % (34.2-44.1); HEMOGLOBIN 16.1 g/dL (12.0-16.0); LYMPHOCYTES # (AUTO) 2.1 (1.0-3.2); LYMPHOCYTES % 16.3 % (18.0-39.1); MEAN CORPUSCULAR HEMOGLOBIN 29.5 pg (28-32); MEAN CORPUSCULAR HGB CONC 34.8 g/dL (31-35); MEAN CORPUSCULAR VOLUME 84.6 fL (81-99); MONOCYTES # (AUTO) 0.5 (0.2-0.8); MONOCYTES % 3.6 % (4.4-11.3); NEUTROPHILS # (AUTO) 9.5 (2.1-6.9); NEUTROPHILS % 74.9 % (38.7-80.0); PLATELET COUNT 237 x10e3/uL (140-360); RED BLOOD COUNT 5.46 x10e6/uL (3.6-5.1); RED CELL DISTRIBUTION WIDTH 13.4 % (11.7-14.4)
--- NOTE | 2019-06-03 06:47 | Diagnostic Imaging Report ---
A single frontal view of the chest. HISTORY: Headache, nausea, double vision COMPARISON: Chest radiograph March 08, 2019 DISCUSSION: Portable technique, limits sensitivity of the exam. Soft tissue attenuation partially limits sensitivity of the exam. Tubes/Lines: None Lungs and pleura: Low lung volumes result in bibasilar vascular crowding, accentuation of the pulmonary interstitial markings, central pulmonary vasculature, and the cardiac silhouette. Allowing for these limitations, the findings are as follows: No evidence of a consolidative pneumonia or pulmonary alveolar edema. No definite pleural effusion or pneumothorax is identified. Heart and mediastinum: The cardiomediastinal silhouette appear(s) unremarkable. Bones and soft tissues: Appear unremarkable, given this limited exam. IMPRESSION: 1. No acute radiographic abnormality. 2. No significant interval change. Signed by: Dr. Jose F Jeff D.O., M.M.M. on 06/03/2019 6:43 AM
[2019-06-03 06:57] LABS: ALBUMIN 3.6 g/dL (3.5-5.0); ALBUMIN/GLOBULIN RATIO 0.9 (0.8-2.0); ANION GAP 15.1 mmol/L (8-16); CALCIUM 9.6 mg/dL (8.4-10.2); CREATININE, SERUM 1.19 mg/dL (0.57-1.11); POTASSIUM 4.1 mmol/L (3.5-5.1)
[2019-06-03 07:03] LABS: CREATINE KINASE MB 6.1 ng/mL (0-5.0)
--- NOTE | 2019-06-03 07:28 | Diagnostic Imaging Report ---
EXAMINATION: Head CT HISTORY: Headache, nausea, double vision, blurry vision, hypertension, weakness COMPARISON: Brain MRI 03/09/[address] 03/08/2019 TECHNIQUE: Multidetector axial images were obtained without contrast from the foramen magnum to the vertex . The images were reconstructed using brain and bone algorithms. Thin section brain images were reformatted into coronal and sagittal planes. Image quality: Motion/streaking artifact limits the evaluation of the skull base and posterior cranial fossa. Dose modulation, iterative reconstruction, and/or weight based adjustment of the mA/kV was utilized to reduce the radiation dose to as low as reasonably achievable. FINDINGS: Parenchyma: 1. Again noted although less conspicuous compared to prior brain MRI due to differences in technique/modality minimal white matter chronic microvascular ischemic changes. 2. No mass or hemorrhage. No CT evidence of acute territorial vascular insult. Extra-axial spaces:No abnormal density. No extra-axial fluid collections Brain volume: Normal for age. Ventricles: No hydrocephalus or displacement. Arteries: No density suggestive of thrombus. Dural sinuses: No abnormal density. Extra-axial spaces: No abnormal density. Foramen magnum: No mass, Chiari malformation, or basilar invagination. Sella: No obvious mass. Paranasal/mastoid sinuses: Imaged portions unremarkable. Skull/Scalp: No lytic or blastic lesions. No fractures. IMPRESSION: 1. No acute intracranial abnormalities, particularly no hemorrhage. 2. Stable minimal chronic microvascular ischemic changes compared to prior brain MRI 03/09/2019. Signed by: Dr. Elvira Jaramillo M.D. on 06/03/2019 7:25 AM
[2019-06-03] MEDS ORDERED: INSULIN REGULAR, HUMAN 100 UNIT/1 ML 3ML VIAL SQ ONE (07:45)
[2019-06-03 07:48] LABS: CLARITY,URINE HAZY (CLEAR); COLOR,URINE YELLOW (YELLOW); LEUKOCYTE ESTERASE ,URINE NEGATIVE (NEGATIVE)
[2019-06-03 07:49] LABS: BILIRUBIN,URINE SMALL (NEGATIVE); KETONES,URINE NEGATIVE (NEGATIVE); NITRITE,URINE NEGATIVE (NEGATIVE); PROTEIN,URINE DIPSTICK 3+ (NEGATIVE); URINE UROBILINOGEN 0.2 mg/dL (0.2 - 1)
[2019-06-03 07:50] LABS: BACTERIA,URINE MANY /HPF; EPITHELIAL CELLS,URINE MODERATE /LPF; RBC,URINE 0-5 /HPF (0-5)
[2019-06-03] MEDS ORDERED: INSULIN GLARGINE 100 UNITS/ML VIAL SQ ONE (08:00)
[2019-06-03 08:07] VITALS: BP 148/80
[2019-06-03] MEDS ORDERED: INSULIN GLARGINE 100 UNITS/ML VIAL SQ SCH (21:00)
== END 2019-06-03 08:09 | disposition home or self-care (01) ==
LOC: ER 06:06
DX: R51 Headache (principal); I10 Essential (primary) hypertension; E11.9 Type 2 diabetes mellitus without complications; Z91.14 Patient's other noncompliance with medication regimen; E66.9 Obesity, unspecified
CPT/HCPCS: 36415; 70450; 71045; 80053; 81001; 82550; 82553; 82948; 84484; 85025; 93005; 96374; 99284; J0360; J1815; J1817; J2405

== ENCOUNTER 2019-06-05 15:43 | Emergency (ER) | payer OTHER ==
[~2019-06-05] VITALS: Ht 162.6 cm; Wt 108.9 kg
[2019-06-05 16:38] LABS: BASOPHILS # (AUTO) 0.1 (0.0-0.1); BASOPHILS % 0.7 % (0.0-1.0); EOSINOPHILS # (AUTO) 0.6 (0.0-0.4); EOSINOPHILS % 4.8 % (0.0-6.0); HEMATOCRIT 45.1 % (34.2-44.1); HEMOGLOBIN 15.4 g/dL (12.0-16.0); LYMPHOCYTES % 23.9 % (18.0-39.1); MEAN CORPUSCULAR HEMOGLOBIN 29.7 pg (28-32); MEAN CORPUSCULAR HGB CONC 34.1 g/dL (31-35); MEAN CORPUSCULAR VOLUME 86.9 fL (81-99); MONOCYTES # (AUTO) 0.6 (0.2-0.8); MONOCYTES % 4.9 % (4.4-11.3); NEUTROPHILS # (AUTO) 8.2 (2.1-6.9); NEUTROPHILS % 65.4 % (38.7-80.0); PLATELET COUNT 219 x10e3/uL (140-360); RED BLOOD COUNT 5.19 x10e6/uL (3.6-5.1); RED CELL DISTRIBUTION WIDTH 13.7 % (11.7-14.4)
[2019-06-05 16:53] LABS: ALBUMIN 3.5 g/dL (3.5-5.0); ALBUMIN/GLOBULIN RATIO 0.9 (0.8-2.0); ANION GAP 12.9 mmol/L (8-16); CALCIUM 9.7 mg/dL (8.4-10.2); CREATININE, SERUM 1.24 mg/dL (0.57-1.11); POTASSIUM 3.9 mmol/L (3.5-5.1)
[2019-06-05 16:53] LABS: BILIRUBIN,URINE NEGATIVE (NEGATIVE); CLARITY,URINE SL CLOUDY (CLEAR); COLOR,URINE YELLOW (YELLOW); KETONES,URINE NEGATIVE (NEGATIVE); LEUKOCYTE ESTERASE ,URINE NEGATIVE (NEGATIVE); NITRITE,URINE NEGATIVE (NEGATIVE); PROTEIN,URINE DIPSTICK 2+ (NEGATIVE); URINE UROBILINOGEN 1 mg/dL (0.2 - 1)
[2019-06-05 17:12] LABS: BACTERIA,URINE MODERATE /HPF; EPITHELIAL CELLS,URINE MODERATE /LPF; RBC,URINE 0-5 /HPF (0-5); WBC,URINE (MAN) 0-5 /HPF (0-5)
[2019-06-05 18:10] VITALS: BP 159/92
== END 2019-06-05 18:20 | disposition home or self-care (01) ==
LOC: ER 15:43
DX: R51 Headache (principal); E11.65 Type 2 diabetes mellitus with hyperglycemia; I10 Essential (primary) hypertension; H57.12 Ocular pain, left eye
CPT/HCPCS: 36415; 80053; 81001; 82948; 85025; 93005; 99284

== ENCOUNTER 2020-01-11 17:56 | Inpatient (IN) | payer SELFPAY ==
[~2020-01-11] VITALS: Ht 162.6 cm; Wt 108.9 kg
[2020-01-11] MEDS ORDERED: HYDRALAZINE HCL 20 MG/ML VIAL IV STA (18:05)
[2020-01-11] MEDS ORDERED: ASPIRIN 81 MG CHEW TAB PO ONE (18:30)
[2020-01-11 18:36] LABS: BASOPHILS # (AUTO) 0.1 (0.0-0.1); BASOPHILS % 0.6 % (0.0-1.0); EOSINOPHILS # (AUTO) 0.5 (0.0-0.4); EOSINOPHILS % 3.8 % (0.0-6.0); HEMATOCRIT 46.3 % (34.2-44.1); HEMOGLOBIN 15.7 g/dL (12.0-16.0); LYMPHOCYTES # (AUTO) 2.9 (1.0-3.2); LYMPHOCYTES % 24.4 % (18.0-39.1); MEAN CORPUSCULAR HEMOGLOBIN 29.1 pg (28-32); MEAN CORPUSCULAR HGB CONC 33.9 g/dL (31-35); MEAN CORPUSCULAR VOLUME 85.9 fL (81-99); MONOCYTES # (AUTO) 0.4 (0.2-0.8); MONOCYTES % 3.7 % (4.4-11.3); NEUTROPHILS # (AUTO) 7.9 (2.1-6.9); NEUTROPHILS % 67.2 % (38.7-80.0); PLATELET COUNT 198 x10e3/uL (140-360); RED BLOOD COUNT 5.39 x10e6/uL (3.6-5.1); RED CELL DISTRIBUTION WIDTH 13.3 % (11.7-14.4)
[2020-01-11] MEDS ORDERED: CLONIDINE HCL 0.2 MG TAB PO ONE (18:45)
[2020-01-11 18:50] LABS: ANION GAP 10.5 mmol/L (8-16); CREATININE, SERUM 1.23 mg/dL (0.57-1.11); POTASSIUM 3.5 mmol/L (3.5-5.1)
[2020-01-11 19:01] LABS: CREATINE KINASE MB 1.7 ng/mL (0-5.0)
--- NOTE | 2020-01-11 19:06 | NUR ---
report given to Maria Guadalupe BOSTON
--- NOTE | 2020-01-11 19:29 | Diagnostic Imaging Report ---
EXAMINATION: Head CT without contrast. HISTORY:Headache, slurred speech, hypertension crisis. COMPARISON:CT brain from 06/03/2019 and MRI brain from 03/09/2019. TECHNIQUE: Multidetector axial images were obtained from the foramen magnum to the vertex without contrast. The images were reconstructed using brain and bone algorithms. Thin section brain images were reformatted into coronal and sagittal planes. Dose modulation, iterative reconstruction, and/or weight based adjustment of the mA/kV was utilized to reduce the radiation dose to as low as reasonably achievable. Intravenous contrast: None IMAGE QUALITY: Suboptimal evaluation particularly at the level of skull base and posterior fossa structures due to streak artifacts. FINDINGS: Skull/scalp: No lytic or blastic. lesions. No surgical changes. Parenchyma: Persistent, minimal white matter microvascular ischemic changes, though less conspicuous compared to prior brain MRI due to differences in technique/modality. No acute hemorrhage, mass or acute major vascular territorial infarct. Arteries: No density suggestive of thrombosis. Dural sinuses: No abnormal density suggestive of thrombosis. Ventricles: No hydrocephalus or displacement. Extra-axial spaces: No abnormal density. Brain volume: Normal for age. Craniocervical junction: No mass, Chiari malformation, or basilar invagination. Sella: No mass. Paranasal/mastoid sinuses: Mild mucosal thickening in bilateral ethmoid sinuses. IMPRESSION: No acute intracranial abnormality. No change since CT brain from 06/03/2019. Persistent minimal supratentorial white matter microvascular ischemic changes, better visualized in prior MRI brain from 03/09/2019. Signed by: Dr. Marley Sung M.D. on 01/11/2020 7:26 PM
--- NOTE | 2020-01-11 19:39 | Diagnostic Imaging Report ---
Examination: PA and lateral view of the chest. COMPARISON: None. INDICATION: Elevated blood pressure DISCUSSION: Lines/tubes: None. Lungs: The lungs are well inflated and clear. No pneumonia or pulmonary edema. Pleura: No pleural effusion or pneumothorax. Heart and mediastinum: The heart and the mediastinum are unremarkable. Bones and soft tissues: No acute bony abnormalities. IMPRESSION: 1. No acute cardiopulmonary abnormalities. Signed by: Dr. Antony Hall M.D. on 01/11/2020 7:36 PM
[2020-01-11] MEDS ORDERED: ONDANSETRON HCL INJ 2MG/ML 2ML 2 MG/ML VIAL IV PRN (19:45)
[2020-01-11] MEDS ORDERED: DEXTROSE 50% SYRINGE 50 ML IV PRN (19:45)
[2020-01-11] MEDS ORDERED: SODIUM CHLORIDE FLUSH 10 ML SYR INJ PRN (19:45)
[2020-01-11] MEDS: INSULIN REGULAR, HUMAN 100 UNIT/1 ML 3ML VIAL SQ SCH (20:09)
[2020-01-11] MEDS: NICARDIPINE 20MG/200ML PREMIX 200 ML IV PRN (20:09)
[2020-01-11] MEDS ORDERED: LORAZEPAM INJ 2 MG/ML VIAL IV ONE (21:15)
[2020-01-11] MEDS ORDERED: SODIUM CHLORIDE 0.9% 500ML 500 ML ONE (21:27)
[2020-01-11] MEDS ORDERED: ROPINIROLE HCL 1 MG TAB PO ONE (22:45)
[2020-01-11 22:51] VITALS: BP_SYST 166; BP_DIAS 121; BP_DIAS 51
[2020-01-11 23:00] VITALS: BP 179/113
[2020-01-11] MEDS: CLONAZEPAM 0.5 MG TAB PO SCH (23:18)
[2020-01-11 23:30] VITALS: BP 180/94
[2020-01-11 23:38] LABS: CLARITY,URINE CLEAR (CLEAR); COLOR,URINE YELLOW (YELLOW); KETONES,URINE 1+ (NEGATIVE); LEUKOCYTE ESTERASE ,URINE NEGATIVE (NEGATIVE); NITRITE,URINE NEGATIVE (NEGATIVE); PROTEIN,URINE DIPSTICK 2+ (NEGATIVE)
[2020-01-11 23:39] LABS: AMPHETAMINES SCREEN,URINE NEGATIVE (NEGATIVE); BENZODIAZEPINES SCREEN,URINE NEGATIVE (NEGATIVE); BILIRUBIN,URINE NEGATIVE (NEGATIVE); PHENCYCLIDINE SCREEN,URINE NEGATIVE (NEGATIVE); URINE UROBILINOGEN 0.2 mg/dL (0.2 - 1)
[2020-01-11 23:58] LABS: BACTERIA,URINE RARE /HPF; EPITHELIAL CELLS,URINE MODERATE /LPF; WBC,URINE (MAN) 0-5 /HPF (0-5)
[2020-01-12] VITALS (30 sets, daily range): BP systolic 142–196; BP diastolic 71–109
[2020-01-12] MEDS: NICARDIPINE 20MG/200ML PREMIX 200 ML IV PRN ×6 (00:48→18:20)
[2020-01-12 04:51] LABS: BASOPHILS # (AUTO) 0.1 (0.0-0.1); BASOPHILS % 0.5 % (0.0-1.0); EOSINOPHILS # (AUTO) 0.1 (0.0-0.4); EOSINOPHILS % 0.4 % (0.0-6.0); HEMATOCRIT 42.1 % (34.2-44.1); HEMOGLOBIN 14.5 g/dL (12.0-16.0); LYMPHOCYTES # (AUTO) 2.5 (1.0-3.2); LYMPHOCYTES % 14.3 % (18.0-39.1); MEAN CORPUSCULAR HEMOGLOBIN 29.1 pg (28-32); MEAN CORPUSCULAR HGB CONC 34.4 g/dL (31-35); MEAN CORPUSCULAR VOLUME 84.5 fL (81-99); MONOCYTES # (AUTO) 0.6 (0.2-0.8); MONOCYTES % 3.5 % (4.4-11.3); NEUTROPHILS # (AUTO) 13.9 (2.1-6.9); NEUTROPHILS % 80.8 % (38.7-80.0); PLATELET COUNT 189 x10e3/uL (140-360); RED BLOOD COUNT 4.98 x10e6/uL (3.6-5.1); RED CELL DISTRIBUTION WIDTH 13.2 % (11.7-14.4)
[2020-01-12 05:09] LABS: MAGNESIUM 1.7 MG/DL (1.3-2.1)
[2020-01-12 05:34] LABS: FERRITIN 139.22 ng/mL (4.63-204.00)
[2020-01-12 06:06] LABS: ALBUMIN 3.2 g/dL (3.5-5.0); ALBUMIN/GLOBULIN RATIO 0.9 (0.8-2.0); ANION GAP 10.4 mmol/L (8-16); CALCIUM 8.8 mg/dL (8.4-10.2); CREATININE, SERUM 1.12 mg/dL (0.57-1.11); POTASSIUM 3.4 mmol/L (3.5-5.1)
[2020-01-12] MEDS: INSULIN REGULAR, HUMAN 100 UNIT/1 ML 3ML VIAL SQ SCH (07:30)
[2020-01-12] MEDS ORDERED: METFORMIN HCL 500 MG TAB PO SCH (08:00)
--- NOTE | 2020-01-12 08:13 | Consultation ---
DATE OF CONSULTATION: 01/12/2020 Pulmonary Critical Care Consultation CHIEF COMPLAINT: Heaviness in the right arm and twitching of the right leg. HISTORY OF PRESENT ILLNESS: The patient is a 44-year-old woman with a history of diabetes and hypertension. Apparently, she has had difficulty obtaining her medications. She went to the doctor yesterday because of some heaviness in her right upper extremity and some twitching of her right leg. She found to have an elevated blood pressure, was sent to the emergency department. After arrival in the emergency department, her blood pressure could not be controlled and she was started on nicardipine. She was sent to the intensive care unit. The patient is still on nicardipine at 3.5 per hour. Her neurological symptoms on the right side have decreased. Her blood sugars have been mildly elevated and she has been receiving insulin as needed. She denies fever, cough, abdominal pain, nausea, vomiting, or other symptoms. PAST MEDICAL HISTORY: 1. Diabetes. 2. Hypertension. 3. 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 The patient was seen by Neurology at that time. PAST SURGICAL HISTORY: Noncontributory. FAMILY HISTORY: Noncontributory. REVIEW OF SYSTEMS: The patient denies any fever or cough. She does note some headache that is improved. She denies any neck pain. She has no sinus congestion. She has no chest pain. She is not having cough or shortness of breath. She is not having nausea or vomiting. She did have heaviness in the right arm as well as twitching in her right leg that has improved. ALLERGIES: THE PATIENT IS ALLERGIC TO LISINOPRIL. PHYSICAL EXAMINATION: VITAL SIGNS: The blood pressure is 163/96 on 3.5 of nifedipine. Her heart rate is 90. She is saturating 100%. HEENT: Shows no facial swelling or erythema. LYMPHATIC: Shows no submandibular, cervical, or supraclavicular adenopathy. CARDIAC: Reveals regular rate and rhythm with normal S1, S2. There are no murmurs or rubs heard. LUNGS: Auscultation of lungs shows decreased breath sounds at the bases. There is no wheezing. ABDOMEN: Soft, nontender. There is no rebound or guarding. EXTREMITIES: Show no leg edema or calf tenderness. NEUROLOGICAL: Does show a possible upgoing toe on the right side, but normal strength. She is no longer having any twitching. LABORATORY DATA: White blood cell count is 17.1 and hemoglobin is 14.5. The platelet count is 189. The BUN to creatinine ratio is 13 to 1.12 and the sodium is 133. The glucose is 240. RADIOGRAPHIC DATA: Chest x-ray shows no acute abnormalities. CT scan of the head shows no acute abnormalities. IMPRESSION: 1. Accelerated hypertension. 2. Leukocytosis of unclear etiology. 3. Transient right-sided neurological findings. 4. Diabetes with hypoglycemia. PLAN: 1. Restart oral antihypertensive medications and wean nicardipine as tolerated. 2. Restart metformin and continue sliding scale insulin as needed. Discuss further diabetic management with Dr. Wing. 3. Echocardiogram and carotid duplex studies. 4. Neurology evaluation. Nasim Gayle MD [facility]/MODL /[id number]
[2020-01-12] MEDS: AMLODIPINE BESYLATE 10 MG TAB PO SCH (09:23)
[2020-01-12] MEDS ORDERED: DEXTROSE 50% SYRINGE 50 ML IV PRN (11:45)
[2020-01-12] MEDS ORDERED: POTASSIUM CHLORIDE 20 MEQ TAB CR PO SCH (12:00)
[2020-01-12 12:31] LABS: CREATINE KINASE MB 3.1 ng/mL (0-5.0)
[2020-01-12] MEDS: INSULIN LISPRO 100 UNIT/1 ML 3ML VIAL SQ SCH ×3 (12:35→21:00)
[2020-01-12] MEDS: HYDRALAZINE HCL 25 MG TAB PO SCH ×2 (13:00→21:09)
--- NOTE | 2020-01-12 14:43 | Diagnostic Imaging Report ---
CT of the chest, without contrast, 01/12/2020. History: Hypertensive emergency, weakness. Comparison: Chest x-ray 01/11/2020. Technique: Multidetector CT scanning of the chest was performed from the level of the apices to the upper abdomen without contrast. Coronal and sagittal multiplanar reformations were obtained. RADIATION DOSE: Total DLP: 501 mGy*cm Dose modulation, iterative reconstruction, and/or weight based adjustment of the mA/kV was utilized to reduce the radiation dose to as low as reasonably achievable. Discussion: Evaluation is limited without IV contrast. Chest: The heart, aorta, and pulmonary vessels are normal in size. There is no gross evidence of adenopathy. There is minimal bilateral dependent atelectasis. There is no evidence of consolidation, ground glass opacity, or pleural effusion. Limited evaluation of the upper abdomen shows normal adrenal glands. Bones and soft tissues: No acute abnormality. Degenerative changes are present throughout the thoracic spine. IMPRESSION: Normal noncontrast CT of the chest. Signed by: Charly Baugh on 01/12/2020 2:40 PM
--- NOTE | 2020-01-12 15:58 | Diagnostic Imaging Report ---
Examination: Cervical and Intracranial CT Angiogram with Contrast History: Weakness.. Comparison studies: None Technique: Axial images were obtained from the thoracic inlet. Coronal and sagittal images reconstructed from the axial data. Intravenous contrast: 100 mL of Isovue-370. Degree of stenosis at the carotid bulbs, if present, will be calculated using NASCET criteria where the smallest diameter at the location of stenosis is compared to the diameter of the more distal non-diseased vessel lumen. Computer generated maximum intensity projection and 3D images of the cervical and intracranial anterior and posterior circulations were performed on a separate workstation. Dose modulation, iterative reconstruction, and/or weight based adjustment of the mA/kV was utilized to reduce the radiation dose to as low as reasonably achievable. Findings: CTA neck: Aortic arch and major vessels: Patent. Common carotid arteries: Patent. Punctate calcific plaque at the distal right common carotid artery Cervical carotid bifurcations: Right: Patent. Left :Patent. Internal carotid arteries: Right: Patent. Left: Patent. Vertebral arteries: Patent on the right from the V1 through V4 segments. Patent on the left at the V1, V3 and V4 segments. There is mild focal narrowing (approximately 50%) of the proximal left V2 segment for a length of 1.5 cm and from mid C5 to the top of C6. CTA head: Internal carotid arteries: Patent. Anterior cerebral arteries: Patent A1 and A2 segments. Middle cerebral arteries: Patent M1 and M2 segments. Posterior cerebral arteries: Patent P1 and P2 segments. Vertebro-basilar system: Patent. Anatomical variants: Anterior communicating artery :Present Posterior communicating arteries: Not visualized. Vertebral arteries: Codominant. Additional findings: Dystrophic calcification in the left thyroid lobe. IMPRESSION: 1. Mild (50%), short segment (1.5 cm) narrowing of the proximal the V2 segment of the left vertebral artery. 2. Nonstenotic calcific plaque at the distal right common carotid artery. Signed by: Dr. Chioma Ha M.D. on 01/12/2020 3:55 PM
[2020-01-12] MEDS ORDERED: IOPAMIDOL 370 MG/ML 200 ML INFUS..BTL INJ ONE (16:56)
[2020-01-12] MEDS ORDERED: SODIUM CHLORIDE 0.9% 100 ML ONE (16:56)
[2020-01-12] MEDS: ASPIRIN 81 MG ENTERIC COATED PO SCH (18:03)
[2020-01-12] MEDS: CARVEDILOL 12.5 MG TAB PO SCH (18:03)
[2020-01-12 19:54] LABS: CREATINE KINASE MB 2.8 ng/mL (0-5.0)
--- NOTE | 2020-01-12 20:42 | Consultation ---
DATE OF CONSULTATION: 01/12/2020 Cardiology Consultation REASON FOR CONSULTATION: Hypertensive crisis. CHIEF COMPLAINT: Right-sided body weakness. HISTORY OF PRESENT ILLNESS: Ms. Augustin is a 44-year-old lady with history of hypertension, type 2 diabetes, hypercholesteremia, fall diagnosed 3 years ago and active electronic cigarette use. She has not been on any medications for many many months and essentially on Thursday this week, she started noticing fumbling with her right hand, difficulty writing, and some right leg tingling and difficulty walking. Her symptoms progressed and came to the [facility] yesterday on January 11, 2020, and she was noted to have blood pressures in the 250/140 range and was told to come to the emergency room for further care and evaluation. In the emergency room, she was diagnosed with hypertensive emergency and was started on a Cardene drip. Her studies included a CT of the head and neck, which was unremarkable with the exception of a 50% narrowing in the proximal V2 segment of the left vertebral artery. CT of the chest was unremarkable and a brain CT showing no bleed and no acute intracranial abnormalities and some microvascular ischemic changes. Currently, blood pressure is 160s over 90s on a Cardene drip. Her main complaint is residual right-sided body weakness and difficulty utilizing her right hand for writing. She denies any speech difficulties. PAST MEDICAL HISTORY: 1. Hypertension, essential, diagnosed 3 years ago. 2. Hypercholesteremia. 3. Type 2 diabetes, diagnosed 3 years ago, not taking any medications. PAST SURGICAL HISTORY: Denies. FAMILY HISTORY: Mother alive at 66. Father at 43 with cirrhosis. SOCIAL HISTORY: Electronic cigarette daily use. Denies any alcohol or illicit drug use. ALLERGIES: LISINOPRIL. HOME MEDICATIONS: None. REVIEW OF SYSTEMS: GENERAL: Positive for fatigue and malaise. Denies any fevers, chills, or weight changes. HEENT: No headaches, visual complaints, sore throat, or stuffy nose. RESPIRATORY: Denies any pleuritic chest pain. No cough. CARDIOVASCULAR: Denies any chest pain or discomfort. No orthopnea, PND, palpitations, syncope, or near syncope. GI: Denies any abdominal pain. Had nausea yesterday with her elevated blood pressure. No vomiting. No bright red blood per rectum, melena, or hematemesis. HEMATOLOGY: Denies any bruising or bleeding. ENDOCRINE: Denies any heat or cold intolerance. Does have some polyuria. MUSCULOSKELETAL: Has some right body weakness and aches in the extremities. SKIN: No rashes. ID: No known infectious issues. NEUROLOGIC: Positive for right-sided body weakness as noted as per HPI. PSYCH: No anxiety or depression. PHYSICAL EXAMINATION: VITAL SIGNS: Height of 64 inches, weight of 240 pounds. BMI is 41.2. Temperature is 98.1, pulse of 90, respiratory rate of 19, blood pressure 163/96, and O2 saturation 100% on room air. GENERAL: This is a well-nourished, obese lady, who is currently in no apparent distress. HEENT: Normocephalic and atraumatic. Pupils are equal, round, reactive to light. Extraocular movements are intact. Oropharynx is clear. NECK: No elevation of jugular venous pulsation. No carotid bruits. CARDIOVASCULAR: Regular rate and rhythm. Normal S1, S2. 3/6 systolic ejection murmur at the right upper sternal border. LUNGS: Clear to auscultation bilaterally. ABDOMEN: Soft, nontender, obese. Normoactive bowel sounds. No hepatosplenomegaly. BACK: No costovertebral angle tenderness. EXTREMITIES: Warm with 2+ bilateral femoral pulses, 2+ bilateral radial pulses, 2+ pedal pulses. NEUROLOGIC: She has 4+ to 5-/5 strength in the right upper extremity, 5/5 on the left upper extremity, 5-/5 strength in the right lower extremity and 5/5 strength in the left lower extremity. There is a mild right facial droop noted. LABORATORY DATA: White count of 17.2, hemoglobin 14.5, hematocrit 42.1, and platelets of 189. Sodium 133, potassium 3.4, chloride 102, bicarb 24, BUN 13, creatinine 1.12, glucose of 288, calcium of 8.8, AST 18, ALT 33, alkaline phosphatase 132, total protein 6.6, albumin of 3.2. Troponin is 0.106. EKG reveals LVH and secondary ST-T wave changes compatible with hypertrophy. Brain CT shows microvascular ischemic changes, but no bleeding. Chest x-ray demonstrates no acute cardiopulmonary abnormalities. CTA of head and neck shows 50% stenosis of V2 segment of the left vertebral artery, but otherwise patent intracerebral vasculature and carotid vasculature. DIAGNOSES: 1. Acute stroke by physical exam and history with symptom onset, now 3 days ago. 2. Hypertensive emergency is appropriately being managed with Cardene drip with blood pressure coming down appropriately. 3. Echocardiogram reviewed showing hypertensive heart changes and likely a byproducts of uncontrolled hypertension. 4. Type 2 diabetes with complications and uncontrolled. 5. Hypercholesteremia. 6. Tobacco dependence. 7. Morbid obesity. PLAN/RECOMMENDATIONS: 1. From a cardiovascular standpoint, we will go ahead and need aggressive risk factor modification medical therapy. 2. Initiated on aspirin therapy. 3. We will start statin therapy. 4. We will go ahead and start titrating oral lesions and wean the Cardene drip off. 5. Appreciate primary team and Neurology, which has already been consulted. 6. Needs PT, OT as tolerated. 7. We will continue to follow. Thank you for this referral. MD BETHANY Danielle/MARCELLE /[id number]
[2020-01-12] MEDS: ATORVASTATIN 40 MG TAB PO SCH (21:09)
[2020-01-12] MEDS: CLONAZEPAM 0.5 MG TAB PO SCH (21:09)
[2020-01-13] VITALS (25 sets, daily range): BP systolic 131–180; BP diastolic 74–101
[2020-01-13 05:10] LABS: BASOPHILS # (AUTO) 0.1 (0.0-0.1); BASOPHILS % 0.7 % (0.0-1.0); EOSINOPHILS # (AUTO) 0.5 (0.0-0.4); EOSINOPHILS % 3.6 % (0.0-6.0); HEMATOCRIT 44.1 % (34.2-44.1); HEMOGLOBIN 14.9 g/dL (12.0-16.0); LYMPHOCYTES # (AUTO) 3.8 (1.0-3.2); LYMPHOCYTES % 27.9 % (18.0-39.1); MEAN CORPUSCULAR HEMOGLOBIN 28.9 pg (28-32); MEAN CORPUSCULAR HGB CONC 33.8 g/dL (31-35); MEAN CORPUSCULAR VOLUME 85.5 fL (81-99); MONOCYTES # (AUTO) 0.6 (0.2-0.8); MONOCYTES % 4.4 % (4.4-11.3); NEUTROPHILS # (AUTO) 8.5 (2.1-6.9); NEUTROPHILS % 62.7 % (38.7-80.0); PLATELET COUNT 194 x10e3/uL (140-360); RED BLOOD COUNT 5.16 x10e6/uL (3.6-5.1); RED CELL DISTRIBUTION WIDTH 13.2 % (11.7-14.4)
[2020-01-13 05:41] LABS: ALBUMIN 3.3 g/dL (3.5-5.0); ALBUMIN/GLOBULIN RATIO 0.9 (0.8-2.0); ANION GAP 11.2 mmol/L (8-16); CALCIUM 9.1 mg/dL (8.4-10.2); CHOL/HDL RATIO 10.2 (3.0-3.6); CREATININE, SERUM 1.07 mg/dL (0.57-1.11); MAGNESIUM 1.8 MG/DL (1.3-2.1); POTASSIUM 3.2 mmol/L (3.5-5.1)
[2020-01-13] MEDS: HYDRALAZINE HCL 25 MG TAB PO SCH (06:10)
[2020-01-13] MEDS: INSULIN LISPRO 100 UNIT/1 ML 3ML VIAL SQ SCH ×6 (07:59→21:22)
[2020-01-13] MEDS: CARVEDILOL 12.5 MG TAB PO SCH (08:01)
[2020-01-13] MEDS: ASPIRIN 81 MG ENTERIC COATED PO SCH (08:01)
[2020-01-13] MEDS: HYDROCHLOROTHIAZIDE 25 MG TAB PO SCH (08:02)
[2020-01-13] MEDS: AMLODIPINE BESYLATE 10 MG TAB PO SCH (08:03)
[2020-01-13 09:54] LABS: THYROID STIMULATING HORMONE 5.022 uIU/mL (0.350-4.940)
[2020-01-13] MEDS ORDERED: CARVEDILOL 12.5 MG TAB PO SCH ×3 (10:00→17:00)
[2020-01-13] MEDS ORDERED: POTASSIUM CHLORIDE 20 MEQ TAB CR PO SCH (10:05)
[2020-01-13] MEDS: HYDRALAZINE HCL 100 MG TABLET PO SCH ×2 (13:07→21:07)
--- NOTE | 2020-01-13 13:26 | NUR ---
Dr Torres notified of new consult.
--- NOTE | 2020-01-13 15:04 | Consultation ---
DATE OF CONSULTATION: 01/13/2020 Endocrine Consultation The patient of Dr. Wing. Thank you very much for referring this patient. HISTORY OF PRESENT ILLNESS: This is a 44-year-old lady, who was referred to me for evaluation of uncontrolled diabetes mellitus and hypothyroidism. The patient came to the hospital with history of accelerated hypertension and weakness of the right lower extremity. The patient is a known diabetic for last several years and takes metformin at home. She also has history of hypertension and hyperlipidemia. SOCIAL HISTORY: The patient tells me that she is a nonsmoker. PHYSICAL EXAMINATION: GENERAL: Today, the patient is alert, awake, little bit apprehensive. She is moderately overweight. VITAL SIGNS: Her heart rate is around 78 and blood pressure 140/80 mmHg. HEENT: Essentially unremarkable. Thyroid is palpable. Clinically, she is near euthyroid. CHEST: Bilateral vesicular breathing. She has mild bronchospasm. CARDIOVASCULAR: First and second heart sounds. There is no third or fourth heart sound. Ejection systolic murmur of grade 2/6. EXTREMITIES: The patient has evidence of diabetic sensory neuropathy in both lower extremities and mild pedal edema. CLINICAL IMPRESSION: Diabetes mellitus type 2, uncontrolled with complications. The glycohemoglobin is around 11.8, facial droop with right-sided weakness, accelerated hypertension. PLAN: At this time is to adjust her thyroid medicines to 0.05 mg once daily and also start her on the Lantus and Humalog combination. Once the patient is ready to be discharged, she can be changed to the NPH and regular insulin since she does not have medical insurance. Thank you for referring this patient. I will follow this patient with you. MD ARPITA Pickard/MODL /[id number]
[2020-01-13] MEDS ORDERED: NICARDIPINE HCL IV PRN (15:45)
[2020-01-13] MEDS ORDERED: SODIUM CHLORIDE 0.9% IV PRN (15:45)
[2020-01-13] MEDS ORDERED: CLONIDINE HCL 0.1 MG TAB PO SCH ×3 (16:45→21:00)
[2020-01-13] MEDS: INSULIN GLARGINE 100 UNITS/ML VIAL SQ SCH (16:55)
[2020-01-13] MEDS: CLONIDINE HCL 0.1 MG TAB PO SCH (21:07)
[2020-01-13] MEDS: ATORVASTATIN 40 MG TAB PO SCH (21:07)
[2020-01-13] MEDS: CLONAZEPAM 0.5 MG TAB PO SCH (21:07)
[2020-01-14 00:50] VITALS: BP 141/81
[2020-01-14 04:00] VITALS: BP 156/85
[2020-01-14] MEDS ORDERED: LEVOTHYROXINE SODIUM 50 MCG TAB PO SCH (06:00)
[2020-01-14] MEDS: HYDRALAZINE HCL 100 MG TABLET PO SCH ×2 (06:00→16:26)
[2020-01-14] MEDS ORDERED: LEVOTHYROXINE SODIUM 25 MCG TABLET PO SCH (06:00)
[2020-01-14 06:08] LABS: BASOPHILS # (AUTO) 0.1 (0.0-0.1); BASOPHILS % 0.7 % (0.0-1.0); EOSINOPHILS # (AUTO) 0.6 (0.0-0.4); EOSINOPHILS % 4.2 % (0.0-6.0); HEMATOCRIT 44.4 % (34.2-44.1); HEMOGLOBIN 15.2 g/dL (12.0-16.0); LYMPHOCYTES # (AUTO) 2.9 (1.0-3.2); MEAN CORPUSCULAR HEMOGLOBIN 29.2 pg (28-32); MEAN CORPUSCULAR HGB CONC 34.2 g/dL (31-35); MEAN CORPUSCULAR VOLUME 85.2 fL (81-99); MONOCYTES # (AUTO) 0.9 (0.2-0.8); MONOCYTES % 6.8 % (4.4-11.3); NEUTROPHILS # (AUTO) 8.8 (2.1-6.9); NEUTROPHILS % 65.7 % (38.7-80.0); PLATELET COUNT 229 x10e3/uL (140-360); RED BLOOD COUNT 5.21 x10e6/uL (3.6-5.1); RED CELL DISTRIBUTION WIDTH 13.4 % (11.7-14.4)
[2020-01-14 06:36] LABS: ANION GAP 13.6 mmol/L (8-16); CALCIUM 9.4 mg/dL (8.4-10.2); CREATININE, SERUM 1.5 mg/dL (0.57-1.11); MAGNESIUM 1.9 MG/DL (1.3-2.1); POTASSIUM 3.6 mmol/L (3.5-5.1)
[2020-01-14 08:14] VITALS: BP 159/78
[2020-01-14] MEDS: INSULIN LISPRO 100 UNIT/1 ML 3ML VIAL SQ SCH ×6 (08:30→16:27)
[2020-01-14] MEDS: ASPIRIN 81 MG ENTERIC COATED PO SCH (08:52)
[2020-01-14] MEDS: CLONIDINE HCL 0.1 MG TAB PO SCH ×2 (08:53→16:26)
[2020-01-14] MEDS: AMLODIPINE BESYLATE 10 MG TAB PO SCH (08:53)
[2020-01-14] MEDS: HYDROCHLOROTHIAZIDE 25 MG TAB PO SCH (08:53)
[2020-01-14 08:56] VITALS: BP 159/78
[2020-01-14] MEDS ORDERED: CARVEDILOL 12.5 MG TAB PO SCH (09:00)
[2020-01-14] MEDS ORDERED: NORVASC5 MG PO (09:42)
[2020-01-14] MEDS ORDERED: SYNTHROID50 MCG PO (09:42)
[2020-01-14] MEDS ORDERED: HYDRALAZINE HC100 MG PO (09:42)
[2020-01-14] MEDS ORDERED: Atorvastatin PO (09:42)
[2020-01-14] MEDS ORDERED: CATAPRES0.1 MG PO (09:42)
[2020-01-14] MEDS ORDERED: ASPIRIN EC81 MG PO (09:42)
[2020-01-14] MEDS ORDERED: ESIDRIX25 MG PO (09:42)
[2020-01-14] MEDS ORDERED: COREG12.5 MG PO (09:42)
[2020-01-14 12:30] VITALS: BP 128/69
[2020-01-14] MEDS ORDERED: NOVOLIN N100 UNIT/4 SQ (15:00)
[2020-01-14] MEDS ORDERED: LEVOTHYROXINE50 MCG PO (15:00)
[2020-01-14] MEDS ORDERED: HUMULIN R100 UNIT/2 SQ (15:00)
[2020-01-14] MEDS: INSULIN GLARGINE 100 UNITS/ML VIAL SQ SCH (16:18)
[2020-01-14 16:34] LABS: ANION GAP 13.5 mmol/L (8-16); CALCIUM 9.1 mg/dL (8.4-10.2); CREATININE, SERUM 1.41 mg/dL (0.57-1.11); POTASSIUM 3.5 mmol/L (3.5-5.1)
--- NOTE | 2020-01-14 16:38 | NUR ---
INSULIN ADMINISTRATION DEMONSTRATED WITH PT AND DAUGHTER THROUGH WINDOW WITH PHONE (NO VISITORS ALLOWED IN HOSPITAL AT THIS TIME), BOTH VERBALIZED UNDERSTANDING, DISCHARGE INSTRUCTIONS REVIEWED, PT VERBALIZED UNDERSTANDING, SITTING IN BEDSIDE CHAIR, CALL LIGHT WITHIN REACH
[2020-01-14 16:45] VITALS: BP 139/80
--- NOTE | 2020-01-14 17:40 | NUR ---
PT WHEELED OFF UNIT VIA WC FOR DISCHARGE, NO CHANGE IN CONDITION
--- NOTE | 2020-01-16 05:43 | Discharge Summary ---
ADMISSION DIAGNOSES: Hypertensive emergency, leukocytosis, type 2 diabetes, morbid obesity with a BMI of 41.2, hypokalemia, acute kidney injury, possible carotid stenosis, and right arm weakness. DISCHARGE DIAGNOSES: Hypertensive emergency, leukocytosis, type 2 diabetes, morbid obesity with a BMI of 41.2, hypokalemia, acute kidney injury, possible carotid stenosis, and right arm weakness, rule out cerebrovascular accident, rule out carotid stenosis, rule out pneumonia, rule out bacteremia, rule out flu, rule out Strep, rule out urinary tract infection, hypothyroidism, hyperlipidemia. HISTORY: Type 2 diabetes, hypertension, new diagnoses of hypothyroidism and hyperlipidemia. SURGICAL HISTORY: None. FAMILY HISTORY: The patient's mother had diabetes and a stroke. SOCIAL HISTORY: The patient admits to smoking half a pack of cigarettes per day. HOSPITAL COURSE: A 44-year-old female admits with complaints of elevated blood pressure, found to be 256/138 in the ER. She has a past medical history of hypertension and diabetes, but has not filled her medications in months. She went to finally get them refilled yesterday due to right upper extremity greater than right lower extremity heaviness that began yesterday. She denies dizziness, but admits to nausea. On admission, due to the blood pressure, the patient was started on nicardipine drip, placed in the ICU, and Cardiology was consulted. Echo showed an EF of 65%. Carotid Doppler showed carotid disease without significant stenosis. Chest x-ray was negative. CT of the brain showed no acute intracranial abnormality. CT of the chest was negative. The patient refused the MRI, so CTA of the head and neck was done, which showed nonstenotic calcific plaque at the distal right common carotid artery. Blood cultures were negative. Throat culture was pending at the time of discharge. Flu and Strep A were negative. UA was negative. The patient remained afebrile. A1c was found to be 11.8, so Endocrinology was consulted. Her TSH was also elevated at 5. Her lipid panels were elevated, triglycerides 177, cholesterol 235, LDL 177, HDL 23. The patient was able to wean off the Cardene drip and was started on Coreg, clonidine, hydralazine, hydrochlorothiazide per Cardiology recommendation. She is also started on aspirin and Lipitor per Neurology recommendation. She was also started on levothyroxine per Endocrinology recommendation and regular insulin t.i.d. with meals 10 units and NPH insulin b.i.d. before meals 16 units. The patient was advised to take her medicines as prescribed and follow up with Primary Care, Cardiology, and Endocrinology in 1 to 2 weeks. The patient understands discharge instructions and agrees to plan. Vital signs stable, the patient afebrile. Dictated by Anisha Harris NP MD MARIAMA Foreman/MARCELLE /[id number]
== END 2020-01-14 17:30 | disposition home or self-care (01) | DRG 305 ==
LOC: ER 17:56 → ERHOLD 19:49 → ICU 22:22 → MED/SURG 01-13 22:57
PROVIDERS: ADMIT Internal Medicine; ATTEND Internal Medicine
DX: I16.1 Hypertensive emergency (principal); Z68.41 Body mass index [BMI] 40.0-44.9, adult; N17.9 Acute kidney failure, unspecified; E11.42 Type 2 diabetes mellitus with diabetic polyneuropathy; E11.649 Type 2 diabetes mellitus with hypoglycemia without coma; E11.65 Type 2 diabetes mellitus with hyperglycemia; I10 Essential (primary) hypertension; E66.9 Obesity, unspecified; D72.829 Elevated white blood cell count, unspecified; E66.01 Morbid (severe) obesity due to excess calories; E87.6 Hypokalemia; R53.1 Weakness; E03.9 Hypothyroidism, unspecified; E78.00 Pure hypercholesterolemia, unspecified; Z83.3 Family history of diabetes mellitus; Z88.8 Allergy status to other drugs, medicaments and biological substances; Z82.49 Family history of ischemic heart disease and other diseases of the circulatory system; Z82.3 Family history of stroke; Z72.0 Tobacco use; R29.810 Facial weakness; T46.5X6A Underdosing of other antihypertensive drugs, initial encounter; Z91.128 Patient's intentional underdosing of medication regimen for other reason
CPT/HCPCS: 36415; 70450; 70496; 70498; 71046; 71250; 80048; 80053; 80061; 80307; 81001; 82550; 82553; 82728; 82948; 83036; 83518; 83735; 84443; 84484; 85025; 87040; 87070; 87400; 93005; 93306; 93880; 96372; 99284; J0360; J1815; J1817; J2060; J2405; J7040; J7050; Q9967

== ENCOUNTER 2021-03-12 22:59 | Emergency (ER) | payer OTHER ==
[~2021-03-12] VITALS: Ht 162.6 cm; Wt 108.9 kg
[~2021-03-12 22:59] MED LIST changes: +ASPIRIN EC81 MG PO; +Atorvastatin PO; +CATAPRES0.1 MG PO; +COREG12.5 MG PO; +ESIDRIX25 MG PO; +HUMULIN R100 UNIT/2 SQ; +HYDRALAZINE HC100 MG PO; +LEVOTHYROXINE50 MCG PO; +NOVOLIN N100 UNIT/4 SQ; +SYNTHROID50 MCG PO
[2021-03-13] MEDS ORDERED: HYDROCODONE/APAP 10MG-325MG TAB PO ONE (00:15)
[2021-03-13] MEDS ORDERED: LIDOCAINE 4% PATCH TP SCH (00:15)
[2021-03-13] MEDS ORDERED: LIDOPATCH1 EACH TOP (03:30)
== END 2021-03-13 04:15 | disposition home or self-care (01) ==
LOC: ER 03-13 00:39
DX: R07.81 Pleurodynia (principal); S22.41XA Multiple fractures of ribs, right side, initial encounter for closed fracture; W01.198A Fall on same level from slipping, tripping and stumbling with subsequent striking against other object, initial encounter; Y93.01 Activity, walking, marching and hiking; Y92.89 Other specified places as the place of occurrence of the external cause; I10 Essential (primary) hypertension; E11.9 Type 2 diabetes mellitus without complications
CPT/HCPCS: 71101; 99283

== ENCOUNTER → 2022-08-19 | Outpatient (CLI) | payer OTHER ==
[~2022-08-19] MED LIST changes: +LIDOPATCH1 EACH TOP
== END ==
LOC: US 08:24
PROVIDERS: ATTEND Internal Medicine Gastroenterology
DX: R10.10 Upper abdominal pain, unspecified (principal); R11.2 Nausea with vomiting, unspecified
CPT/HCPCS: 76700

== ENCOUNTER 2023-11-03 11:30 | Emergency (ER) | payer OTHER ==
[~2023-11-03] VITALS: Ht 162.6 cm; Wt 99.8 kg
[~2023-11-03 11:30] MED LIST changes: +CLEOCIN HCL150 MG PO
[2023-11-03 11:42] VITALS: O2SAT 100
[2023-11-03] MEDS ORDERED: KETOROLAC TROMETHAMINE 30 MG/ML VIAL IV STA (11:55)
[2023-11-03] MEDS ORDERED: DEXAMETHASONE SOD PHOS 10 MG/1 ML VIAL IM ONE (12:00)
[2023-11-03 12:31] LABS: BASOPHILS # (AUTO) 0.1 (0.0-0.1); BASOPHILS % 0.8 % (0.0-1.0); EOSINOPHILS # (AUTO) 0.5 (0.0-0.4); HEMATOCRIT 41.8 % (34.2-44.1); HEMOGLOBIN 13.5 g/dL (12.0-16.0); LYMPHOCYTES # (AUTO) 2.8 (1.0-3.2); LYMPHOCYTES % 21.9 % (18.0-39.1); MEAN CORPUSCULAR HEMOGLOBIN 28.8 pg (28-32); MEAN CORPUSCULAR HGB CONC 32.3 g/dL (31-35); MEAN CORPUSCULAR VOLUME 89.3 fL (81-99); MONOCYTES # (AUTO) 0.7 (0.2-0.8); NEUTROPHILS # (AUTO) 8.8 (2.1-6.9); PLATELET COUNT 243 x10e3/uL (140-360); RED BLOOD COUNT 4.68 x10e6/uL (3.6-5.1); RED CELL DISTRIBUTION WIDTH 14.4 % (11.7-14.4); WHITE BLOOD COUNT 12.99 x10e3/uL (4.8-10.8)
[2023-11-03 12:54] LABS: ALBUMIN 3.6 g/dL (3.5-5.0); ALBUMIN/GLOBULIN RATIO 0.9 (0.8-2.0); ANION GAP 14.3 mmol/L (8-16); BILIRUBIN,TOTAL 0.4 mg/dL (0.2-1.2); CALCIUM 9.2 mg/dL (8.4-10.2); CREATININE, SERUM 1.74 mg/dL (0.57-1.11); INFLUENZAE A&B ANTIGEN (RAPID) NEGATIVE (NEGATIVE); POTASSIUM 4.3 mmol/L (3.5-5.1); RESPIRATORY SYNC. VIRUS NEGATIVE (NEGATIVE); TOTAL PROTEIN 7.5 g/dL (6.5-8.1)
[2023-11-03 13:40] LABS: BILIRUBIN,URINE NEGATIVE (NEGATIVE); CLARITY,URINE SL CLOUDY (CLEAR); COLOR,URINE YELLOW (YELLOW); GLUCOSE, URINE NEGATIVE (NEGATIVE); KETONES,URINE NEGATIVE (NEGATIVE); LEUKOCYTE ESTERASE ,URINE SMALL (NEGATIVE); NITRITE,URINE NEGATIVE (NEGATIVE); PH,URINE 5.5 (5 - 7); PROTEIN,URINE DIPSTICK 2+ (NEGATIVE); URINE UROBILINOGEN 0.2 mg/dL (0.2 - 1)
[2023-11-03 14:04] LABS: BACTERIA,URINE MODERATE /HPF; EPITHELIAL CELLS,URINE MODERATE /LPF
[2023-11-03] MEDS ORDERED: CEFDINIR300 MG PO (14:08)
== END 2023-11-03 14:12 | disposition home or self-care (01) ==
LOC: ER 11:45
DX: R53.1 Weakness (principal); N28.9 Disorder of kidney and ureter, unspecified; I10 Essential (primary) hypertension; E11.65 Type 2 diabetes mellitus with hyperglycemia; Z11.52 Encounter for screening for COVID-19; F17.210 Nicotine dependence, cigarettes, uncomplicated
CPT/HCPCS: 36415; 71045; 80053; 81001; 84484; 85025; 87400; 87420; 93005; 99284; U0002